=== PATIENT | female | born 1990 | race Hispanic/Latino ===

== ENCOUNTER 2017-01-27 20:45 | Inpatient (IN) | payer BC ==
[2017-01-27 21:29] VITALS: BMI 23.2
[2017-01-28] MEDS ORDERED: Ondansetron HCl/PF 4 MG/2 ML Vial IVP PRN ×3 (02:53→10:24)
[2017-01-28] MEDS ORDERED: Lidocaine 1% (PF) 30 ML VIAL SC PRN (02:53)
[2017-01-28] MEDS ORDERED: LR / Pitocin 40 units/1000 ml 1,000 ML IV PRN (02:53)
[2017-01-28 03:24] LABS: Hematocrit 35.6 % (36.0-47.0); Mean Platelet Volume 9.4 fL (7.4-10.4); Red Blood Cell (RBC) Count 3.82 mill/uL (4.20-5.40); White Blood Cell (WBC) Count 8.3 thou/uL (4.8-10.8)
[2017-01-28] MEDS: Lactated Ringer's 1,000 ML IV SCH ×4 (03:24→16:00)
[2017-01-28] MEDS ORDERED: Fentanyl 4 mcg/Marc 0.1% Cadd 100 ML ONE (05:25)
[2017-01-28] MEDS ORDERED: ePHEDrine/0.9% NaCl/PF SYRINGE 50 mg/10 ml SLOW IVP PRN (05:53)
[2017-01-28] MEDS ORDERED: Acetaminophen 325 MG TAB PO PRN (05:53)
[2017-01-28] MEDS ORDERED: Promethazine HCl 25 MG/ML VIAL IM PRN (05:53)
[2017-01-28] MEDS ORDERED: Lactated Ringer's 500 ML IV PRN (05:53)
[2017-01-28] MEDS ORDERED: diphenhydrAMINE HCl 50 MG/ML 1 ML VIAL IVP PRN (05:53)
[2017-01-28] MEDS ORDERED: Eucerin (Mineral Oil/Petrolatum,White) 30 gm Jar TOP PRN (05:53)
[2017-01-28] MEDS ORDERED: Naloxone HCl 0.4 mg/ml Vial IVP PRN ×2 (05:53)
[2017-01-28] MEDS ORDERED: Communication Order-Pharmacy FS SCH (06:00)
[2017-01-28] MEDS ORDERED: Fentanyl 4mcg/Marcaine 0.1% Cassette 100 ML EPIDURAL SCH (06:00)
[2017-01-28] MEDS ORDERED: Bisacodyl 10 MG SUPP PR PRN (10:24)
[2017-01-28] MEDS ORDERED: diphenhydrAMINE HCl 25 MG CAP PO PRN (10:24)
[2017-01-28] MEDS ORDERED: Preparation H Ointment 28 GM TUBE PR PRN (10:24)
[2017-01-28] MEDS ORDERED: LR / Pitocin 40 units/1000 ml 1,000 ML IV SCH (10:24)
[2017-01-28] MEDS ORDERED: Benzocaine/Menthol 20-0.5% 60 ML CAN TOP PRN (10:24)
[2017-01-28] MEDS ORDERED: Milk Of Magnesia 30 ML UDCUP PO PRN (10:24)
[2017-01-28] MEDS: Ferrous Sulfate 325 MG TAB PO SCH ×2 (11:58→16:00)
[2017-01-28] MEDS: HYDROcodone/Acetaminophen 5/325 mg Tablet PO PRN ×2 (12:02→18:39)
[2017-01-28] MEDS: Docusate (Surfak) 240 MG CAP PO SCH ×2 (12:06→21:18)
[2017-01-28] MEDS: Prenatal Vitamin 1 TAB PO SCH (12:06)
[2017-01-28] MEDS: Ibuprofen 800 MG TAB PO SCH ×2 (14:38→21:18)
[2017-01-29] MEDS: Ibuprofen 800 MG TAB PO SCH ×3 (05:17→21:22)
[2017-01-29 05:31] LABS: Mean Platelet Volume 8.3 fL (7.4-10.4); Red Blood Cell (RBC) Count 3.11 mill/uL (4.20-5.40); White Blood Cell (WBC) Count 7.7 thou/uL (4.8-10.8)
[2017-01-29] MEDS: Ferrous Sulfate 325 MG TAB PO SCH ×2 (09:02→17:19)
[2017-01-29] MEDS: Prenatal Vitamin 1 TAB PO SCH (09:02)
[2017-01-29] MEDS: HYDROcodone/Acetaminophen 5/325 mg Tablet PO PRN ×3 (09:02→19:55)
[2017-01-29] MEDS: Docusate (Surfak) 240 MG CAP PO SCH ×2 (09:02→19:54)
[2017-01-30] MEDS ORDERED: Bupivacaine 0.25% HCL 30 ML VIAL ONE (06:03)
[2017-01-30] MEDS ORDERED: Lidocaine 2% PF 10 ML AMP (For Epidural Use) ONE (06:03)
[2017-01-30] MEDS: Ibuprofen 800 MG TAB PO SCH (06:08)
[2017-01-30] MEDS: Lactated Ringer's 1,000 ML IV SCH (07:49)
[2017-01-30 08:20] VITALS: BP 108/67; TEMP 97.7
[2017-01-30] MEDS: Prenatal Vitamin 1 TAB PO SCH (08:49)
[2017-01-30] MEDS: Docusate (Surfak) 240 MG CAP PO SCH (08:49)
[2017-01-30] MEDS: Ferrous Sulfate 325 MG TAB PO SCH (08:49)
== END 2017-01-30 13:30 | disposition home or self-care (01) | DRG 775 ==
LOC: L&D/OP 20:45 → L&D 01-28 03:04 → 3SW 01-28 09:27
PROVIDERS: ADMIT Family Medicine; ATTEND Family Medicine
PROC: 10E0XZZ Delivery of Products of Conception, External Approach (ICD-10-PCS; principal; 2017-01-28)
PROC: 0W8NXZZ Division of Female Perineum, External Approach (ICD-10-PCS; 2017-01-28)
PROC: 10907ZC Drainage of Amniotic Fluid, Therapeutic from Products of Conception, Via Natural or Artificial Opening (ICD-10-PCS; 2017-01-28)
DX: O80 Encounter for full-term uncomplicated delivery (principal); Z37.0 Single live birth; Z3A.39 39 weeks gestation of pregnancy
CPT/HCPCS: 36415; 85027; 86780; 87340; J0595; J2001; S0020

== ENCOUNTER 2018-07-11 23:37 | Emergency (ER) | payer BC ==
[2018-07-12 00:05] LABS: #Eosinphils 0.2 thou/uL (0.0-0.7); #Lymphocytes 1.9 thou/uL (1.20-3.40); #Monocytes 0.6 thou/uL (0.11-0.59); #Neutrophils 5.1 thou/uL (1.40-6.50); %Basophils 0.6 % (0.0-1.0); %Eosinophils 2.4 % (0.0-10.0); %Lymphocytes 24.5 % (21.0-51.0); %Monocytes 7.1 % (0.0-10.0); %Neutrophils 65.5 % (42.0-75.0); Hemoglobin 12.8 g/dL (12.0-16.0); Mean Corpuscular HGB CONC 35.2 g/dL (32.0-36.0); Mean Corpuscular Hemoglobin 31.5 pg (27.0-31.0); Mean Corpuscular Volume 89.4 fL (78.0-98.0); Mean Platelet Volume 7.7 fL (7.4-10.4); Platelet Count 230 thou/uL (130-400); RBC Distribution Width 11.6 % (11.5-14.5); Red Blood Cell (RBC) Count 4.06 mill/uL (4.20-5.40); White Blood Cell (WBC) Count 7.8 thou/uL (4.8-10.8)
[2018-07-12 00:17] LABS: Bilirubin Negative (Negative); Blood, Urine Negative (Negative); Clarity CLEAR (Clear); Glucose, Urine (Dipstick) Negative (Negative); Leukocyte Negative (Negative); Nitrite Negative (Negative); Protein, Urine (Dipstick) Negative (Neg-Trace); Specific Gravity, Urine 1.015 (1.002-1.036); pH, Urine 6.5 (5.0-9.0)
[2018-07-12] MEDS ORDERED: Acetaminophen 500 MG TAB ONE (01:51)
--- NOTE | 2018-07-12 09:27 | ULT ---
PRELIMINARY REPORT/[facility]/EMERGENTY AFTER-HOURS PROCEDURE US After First Trimester, Transabdominal EXAM DATE/TIME: 07/12/2018 12:55 AM CLINICAL HISTORY: 28 years old, female; Pain and signs and symptoms; Lmp or gestational age (in weeks): 14w2d; Antepart um complications; Other: Pelvic pain that radiates to RT flank; complicated by abdominal or pelvic pain; ; Patient HX: Pelvic pain that radiates to RT flank, nausea, no vaginal bleeding at this time TECHNIQUE: Real-time transabdominal obstetrical ultrasound of the maternal pelvis and a second or third trimeste r with image documentation. COMPARISON: No relevant prior studies available. FINDINGS: GESTATION: Gestation: Single living intrauterine gestation. Heart rate: 150 beats per minute Presentation: Variable Placenta: Anterior placenta. The placenta is low in position and partially or completely covers the i nternal cervical os. Amniotic fluid: Amniotic fluid is visually adequate for gestational age. Head, face, and neck: Incompletely evaluated secondary to early gestation. Heart: Limited evaluation secondary to early gestation. Abdomen: The stomach is visualized. Umbilical cord and insertion: Normal Spine: Limited due to early gestation. Extremities: Limited due to early gestation. BIOMETRY: Estimated gestational age: 15w0d Biparietal diameter: 2.66 cm Head circumference: 9.99 cm Abdominal circumference: 7.79 cm Femur length: 1.28 cm MATERNAL: Uterus: Unremarkable. Cervix: Closed measuring 4.4 cm on transabdominal view. IMPRESSION: 1. Single living intrauterine . Estimated sonographic age of 14w2d. Size and dates are conco rdant. 2. Placenta previa. Followup recommendations per on-site radiologist. 3. No evidence of a subchorionic hematoma. Thank you for allowing us to participate in the care of your patient. Dictated and Authenticated by: Susana Hunter MD 07/12/2018 2:08 AM Central Time ([place] & [place]) FINAL REPORT COMPLETE STANDARD OB ULTRASOUND: HISTORY: Abdominal pain. Flank pain. No vaginal bleeding. COMPARISON: None. TECHNIQUE: Real-time, alfred-scale, color Doppler, and spectral analysis of the pelvis was performed via a transab dominal approach. The findings and impression are concordant with the preliminary report. Followup recommended for the placenta previa. POS: [facility]
== END 2018-07-12 02:53 | disposition home or self-care (01) ==
LOC: ERS 23:37
DX: O44.02 Complete placenta previa NOS or without hemorrhage, second trimester (principal); Z3A.14 14 weeks gestation of pregnancy
CPT/HCPCS: 36415; 76805; 76815; 81003; 84702; 85025

== ENCOUNTER 2018-08-22 14:04 | Outpatient (CLI) | payer BC ==
--- NOTE | 2018-08-22 15:04 | ULT ---
EXAM: OB ultrasound COMPARISON: 07/12/2018 HISTORY: Previous placenta previa seen on ultrasound. TECHNIQUE: Multiplanar grayscale and color Doppler images were obtained in a transabdominal ult rasound. FINDINGS: There is a single live intrauterine with heart rate of 142 bpm. A survey wa s performed which is unremarkable. The head, intracranial structures, heart, stomach, kidneys, umbilical cord, umbilical cord insertion, spine, face, and extremities were evaluated and were unrema rkable. Estimated weight is 320 g. Average age of the fetus based off today's examination is 20 weeks 2 days. BPD 4.81 cm -- 20 weeks 4 days HC 17.96 cm -- 20 weeks 3 days AC 14.70 cm -- 20 weeks 0 days FL 3.10 cm -- 19 weeks 5 days The placenta is anterior in location without focal abnormality. [place] is 17.52 cm which is normal. Ther e is no evidence of placenta previa. The inferior tip of the placenta is 2.3 cm from the internal os. IMPRESSION: 1. Single live intrauterine with estimated age of 20 weeks 2 days. 2. No evidence of placenta previa
== END 2018-08-22 14:05 | disposition home or self-care (01) ==
LOC: BICULT 14:04
PROVIDERS: ATTEND Family Medicine
DX: Z34.82 Encounter for supervision of other normal pregnancy, second trimester (principal)
CPT/HCPCS: 76805

== ENCOUNTER 2018-10-14 18:18 | Day surgery (SDC) | payer BC ==
[2018-10-14 19:02] VITALS: BP 98/49; TEMP 99.2; BMI 23.8
[2018-10-14 19:52] LABS: #Eosinphils 0.1 thou/uL (0.0-0.7); #Lymphocytes 1.3 thou/uL (1.20-3.40); #Monocytes 0.6 thou/uL (0.11-0.59); #Neutrophils 7.7 thou/uL (1.40-6.50); %Basophils 0.4 % (0.0-1.0); %Eosinophils 0.6 % (0.0-10.0); %Lymphocytes 13.7 % (21.0-51.0); %Monocytes 5.7 % (0.0-10.0); %Neutrophils 79.6 % (42.0-75.0); Hemoglobin 11.5 g/dL (12.0-16.0); Mean Corpuscular HGB CONC 35.9 g/dL (32.0-36.0); Mean Corpuscular Hemoglobin 32.5 pg (27.0-31.0); Mean Corpuscular Volume 90.7 fL (78.0-98.0); Mean Platelet Volume 7.9 fL (7.4-10.4); Platelet Count 188 thou/uL (130-400); RBC Distribution Width 10.6 % (11.5-14.5); Red Blood Cell (RBC) Count 3.53 mill/uL (4.20-5.40); White Blood Cell (WBC) Count 9.7 thou/uL (4.8-10.8)
[2018-10-14 20:12] LABS: ALT (SGPT) 18 U/L (8-55); AST (SGOT) 19 U/L (5-34); Albumin 3.4 g/dL (3.5-5.0); Alkaline Phosphatase 87 U/L (40-150); Anion Gap 13 mmol/L (10-20); BUN (Urea Nitrogen) 8 mg/dL (7.0-18.7); Bilirubin, Total 0.2 mg/dL (0.2-1.2); Calc. Creatinine Clearance 161 mL/min (70-130); Calcium 8.8 mg/dL (7.8-10.44); Carbon Dioxide 21 mmol/L (22-29); Chloride 104 mmol/L (98-107); Estimated GFR-MDRD Greater than 90; Globulin 2.9 g/dL (2.4-3.5); Glucose 99 mg/dL (70-105); Potassium 3.4 mmol/L (3.5-5.1); Protein, Total 6.3 g/dL (6.0-8.3); Sodium 135 mmol/L (136-145)
[2018-10-14 20:33] LABS: Bilirubin Negative (Negative); Blood, Urine Negative (Negative); Clarity CLEAR (Clear); Glucose, Urine (Dipstick) Negative (Negative); Leukocyte Negative (Negative); Nitrite Negative (Negative); Protein, Urine (Dipstick) Negative (Neg-Trace); Specific Gravity, Urine 1.008 (1.002-1.036); Urobilinogen 0.2 mg/dL (0.2-1.0)
--- NOTE | 2018-10-14 21:22 | PDOC.FPROB ---
FMR OB H&P: HPI - History of Present Illness Chief Complaint: RUQ pain Indentification: 28 year old at 28.2 wks History of Present Illness: 28 year old at 28.2 wks with BEVERLY of 01/04/2019 presents with sudden onset RUQ pain around 16:40 this afternoon. She states she was at work and reached for something when she felt a pull. She has RUQ pain radiating to back and LLQ pain. Patient states that she has not had pain like this before. She does have a history of GERD, but she states that she is not on any medications for it, and this pain is different. Movements make the pain worse. Patient did have nausea earlier today and has not eaten since 12:00 PM. Patient denies any significant PMH. She denies vaginal bleeding, vaginal discharge, LoF, or contractions. Patient endorses good movement. Patient denies fever, chills , dysuria. Primary Care Physician: Dr. Hackett FMR OB H&P: Current - Care : 2 Para: 1001 Gestational age: 28.2 wks Due date: 01/04/2019 FMR OB H&P: History - Past Medical History PMH: GERD - OB History OB History: x1 - Surgical History Sx History: Denies - Social History Social History: Denies alcohol, tobacco, or drug use. FMR OB H&P: Medications - Current Home Medications: Medication Instructions Recorded Confirmed Type Comb No.42/Folic Acid 1 tablet PO DAILY 01/27/17 10/14/18 History [Prena1 Chewable Tablet] Allergies/Adverse Reactions: Allergies Allergy/AdvReac Type Severity Reaction Status Date / Time No Known Allergies Allergy Verified 10/14/18 18:58 FMR OB H&P: ROS - Review of Systems General: reports: weight/appetite/sleep changes (decreased appetite). denies: fever/chills, recent trauma ENT: denies: nasal congestion, rhinorrhea, sore throat Cardiovascular: denies: chest pain, palpitation, edema Respiratory: denies: cough, congestion, shortness of breath Gastrointestinal: reports: abdominal pain, nausea. denies: bloating, cramping, vomiting, diarrhea, constipation Genitourinary (Female): reports: polyuria. denies: dysuria, vaginal discharge, vaginal pain, vaginal bleeding, contractions, vaginal pressure Musculoskeletal: reports: other (Pulled muscle right side). denies: stiffness Neurologic: denies: numbness, syncope, seizures Integumentary: denies: itching, rash, lesions Hematologic/Lymphatic: denies: prolonged or excessive bleeding Psychological: denies: depression, anxiety FMR OB H&P: Vital Signs - Maternal Vital signs: Vital Signs - First Documented Temp Resp BP 99.2 F 16 98/49 L 10/14/18 18:58 10/14/18 18:58 10/14/18 18:58 - Heart Tones Variability: moderate Acceleration: present Deceleration: absent Category: category 1 [place] contractions every: None FMR OB H&P: Physical Exam - Physical Exam General: NAD, awake, alert and oriented HEENT: MMM, grossly normal vision, grossly normal hearing Neck: supple Heart: RRR, no murmurs/rubs/gallops General: CTAB, no respiratory distress Abdomen: soft, gravid Musculoskeletal: pulses present, FROM in all four extremities Neurological: no tremor, no focal deficit Skin: no rash, capillary refill <2 seconds Lymphatic: no unusual bruising or bleeding, no purpura Psychiatric: intact recent and remote memory, good judgement and insight FMR OB H&P: Results - Labs Lab results: Laboratory Results - last 24 hr 10/14/18 10/14/18 10/14/18 19:42 19:42 20:24 WBC 9.7 RBC 3.53 L Hgb 11.5 L Hct 32.0 L MCV 90.7 MCH 32.5 H MCHC 35.9 RDW 10.6 L Plt Count 188 MPV 7.9 Neutrophils % 79.6 H Lymphocytes % 13.7 L Monocytes % 5.7 Eosinophils % 0.6 Basophils % 0.4 Neutrophils # 7.7 H Lymphocytes # 1.3 Monocytes # 0.6 H Eosinophils # 0.1 Basophils # 0.0 Sodium 135 L Potassium 3.4 L Chloride 104 Carbon Dioxide 21 L Anion Gap 13 BUN 8 Creatinine 0.49 L Estimated GFR (MDRD) Greater than 90 Glucose 99 Calcium 8.8 Total Bilirubin 0.2 AST 19 ALT 18 Alkaline Phosphatase 87 Serum Total Protein 6.3 Albumin 3.4 L Globulin 2.9 Albumin/Globulin Ratio 1.2 Urine Color YELLOW Urine Clarity CLEAR Urine pH 7.0 Ur Specific [place] 1.008 Urine Protein Negative Urine Glucose (UA) Negative Urine Ketones Negative Urine Blood Negative Urine Nitrite Negative Urine Bilirubin Negative Urine Urobilinogen 0.2 Ur Leukocyte Esterase Negative FMR OB H&P: A/P - Problem List (1) Abdominal pain during intrauterine Current Visit: Yes Status: Acute Code(s): O26.899 - OTH RELATED CONDITIONS, UNSPECIFIED TRIMESTER; R10.9 - UNSPECIFIED ABDOMINAL PAIN (2) GERD (gastroesophageal reflux disease) Current Visit: Yes Status: Acute Code(s): K21.9 - GASTRO-ESOPHAGEAL REFLUX DISEASE WITHOUT ESOPHAGITIS Disposition: 28 year old at 28.2 wks presents with RUQ pain 1. RUQ abdominal pain - radiates to back - hx of GERD, not on medications - story consistent with MSK strain given she was reaching for something at work when it started - RUQ u/s pending to evaluate gallbladder and kidney - PO hydration - CMP with nml BUN, Cr, and LFT's - UA straight cath neg for infection or blood (which would point toward kidney stone) - CBC with mild anemia but neg WBC 2. GERD - Not on medications Dispo: Pending RUQ sono. Labs WNL. Likely MSK given precipitating events. Discussion: Date/Time: 10/14/182118 This H&P was discussed with [] and [] who agree with the above documentation and plan.
--- NOTE | 2018-10-14 22:04 | ULT ---
ULTRASOUND ABDOMEN LIMITED: (RIGHT UPPER QUADRANT) DATE: 10/14/2018 HISTORY: 28-year-old female 28 weeks gestation presents with right upper quadrant abdominal pain. FINDINGS: Gallbladder:Contains multiple tiny gallstones, on the order of 2 to 3 mm in size each. Gallbladder no t distended. Borderline mural thickening to 3 mm. No pericholecystic edema. Positive tenderness over right upper quadrant during scanning. Common duct: 5 mm. Liver:Normal Pancreas:Much of it obscured by shadowing from bowel gas. Right kidney:Very mild dilation of right renal collecting system. This could represent mild hydroneph rosis of . Right ureteral jet demonstrated in the normal-appearing bladder. IMPRESSION: Positive for cholelithiasis.
--- NOTE | 2018-10-14 22:11 | PDOC.EVN ---
Event Note - Event Note Event Note: 22:00 on 10/14/2018 RUQ ultrasound showed cholelithiasis with no evidence for cholecystitis. Mild hydro on right, which would be expected with . Ureteral jet normal on right. No evidence of kidney stone. Labs WNL. Patient educated on gallstones and possibility of MSK strain. Advised she can take tylenol 1g q6h as needed for pain. ER precautions provided to include persistent N/V, severe RUQ pain, fever, chills. Patient advised to schedule follow up with Dr. Hackett early next week. Patient voiced understanding of necessity for close follow up. Patient discharged home in stable condition. She did not appear to be in any pain at time of discharge. Eva Thibodeaux, DO PGY-2
== END 2018-10-14 22:15 | disposition home or self-care (01) ==
LOC: L&D/OP 18:18
PROVIDERS: ATTEND Family Medicine
DX: O99.613 Diseases of the digestive system complicating pregnancy, third trimester (principal); K80.20 Calculus of gallbladder without cholecystitis without obstruction; K21.9 Gastro-esophageal reflux disease without esophagitis; O99.89 Other specified diseases and conditions complicating pregnancy, childbirth and the puerperium; N13.30 Unspecified hydronephrosis; Z3A.28 28 weeks gestation of pregnancy
CPT/HCPCS: 36415; 76705; 80053; 81003; 85025; 99283

== ENCOUNTER 2018-12-21 19:35 | Day surgery (SDC) | payer BC, OTHER ==
[2018-12-21 20:05] VITALS: BMI 24.1
[2018-12-21] MEDS ORDERED: Metoclopramide HCl 10 MG/2 ML VIAL IVP PRN (20:27)
[2018-12-21] MEDS ORDERED: diphenhydrAMINE 50 MG/ML VIAL IVP PRN (20:27)
[2018-12-21] MEDS ORDERED: Lactated Ringer's 1,000 ML IV SCH (20:30)
--- NOTE | 2018-12-21 22:18 | PDOC.LDHP ---
Labor and Delivery H&P Chief complaint: contractions, other (headache) HPI: 28 y/o at 38w0d, patient of Dr. Hackett, presents with ctx on and off today and a headache unrelieved with Tylenol. Denies VB, LOF, or decreased FM. ROS neg for HEENT, cv, pulm, gi, gu, neuro, psych, skin, musculoskeletal or constitutional symptoms other than mentioned above. OB History Details: 1 prior term Current complications: none Past Medical History: GERD Current medications: pre- vitamins Previous surgical history: none Allergies/Adverse Reactions: Allergies Allergy/AdvReac Type Severity Reaction Status Date / Time No Known Allergies Allergy Verified 10/14/18 18:58 Social history: none - Physical Exam Vital signs reviewed and normal: yes General: NAD, resting Lungs: nonlabored breathing Abdomen: gravid Extremeties: no edema FHT: category 1 (140s, mod variability, + accels, no decels) [place] contractions every: irritability, resolved - Vaginal Exam cm dilated: 1 Effacement: 50% Station: -3 - Assessment 28 y/o at 38w0d with no e/o active labor. Headache resolved with Reglan and Benadryl. status reassuring with reactive NST. - Plan -: D/c home with precautions. Advised to keep all appointments.
== END 2018-12-21 22:40 | disposition home or self-care (01) ==
LOC: L&D/OP 19:35
PROVIDERS: ATTEND Family Medicine
DX: O99.89 Other specified diseases and conditions complicating pregnancy, childbirth and the puerperium (principal); R51 Headache; O99.613 Diseases of the digestive system complicating pregnancy, third trimester; K21.9 Gastro-esophageal reflux disease without esophagitis; Z3A.38 38 weeks gestation of pregnancy
CPT/HCPCS: 96360; 96375; 99283; J1200; J2765

== ENCOUNTER 2018-12-29 05:30 | Inpatient (IN) | payer BC, OTHER ==
[2018-12-29] MEDS ORDERED: Carboprost 250 MCG/ML AMP IM PRN (11:10)
[2018-12-29] MEDS ORDERED: NS w/ Oxytocin 10 units 500 ML IV SCH ×2 (11:10)
[2018-12-29] MEDS ORDERED: Lactated Ringer's 1,000 ML IV SCH (11:10)
[2018-12-29] MEDS ORDERED: Ibuprofen 800 MG TAB PO PRN (11:10)
[2018-12-29] MEDS ORDERED: Ondansetron PF 4 MG/2 ML Vial IVP PRN ×2 (11:10→17:43)
[2018-12-29] MEDS ORDERED: Misoprostol 200 MCG TAB PR PRN (11:10)
[2018-12-29] MEDS ORDERED: Methylergonovine 0.2 MG/ML VIAL IM PRN (11:10)
[2018-12-29] MEDS ORDERED: Diphenoxylate HCl/Atropine Tablet PO PRN (11:10)
[2018-12-29] MEDS ORDERED: Promethazine HCl 25 MG/ML VIAL IM PRN ×2 (11:10→17:43)
[2018-12-29] MEDS ORDERED: Butorphanol Tartrate 1 MG/ML VIAL SLOW IVP PRN (11:10)
[2018-12-29] MEDS ORDERED: Lidocaine 1% (PF) 30 ML VIAL SC PRN (11:10)
[2018-12-29] MEDS ORDERED: HYDROcodone/Acetaminophen 5/325 mg Tablet PO PRN ×3 (11:10→17:43)
[2018-12-29] MEDS ORDERED: NS / Oxytocin 40 units/1000ml 1,000 ML IV PRN (11:10)
[2018-12-29] MEDS ORDERED: hydrALAZINE 20 MG/ML VIAL SLOW IVP PRN ×2 (11:10→17:43)
[2018-12-29 11:34] LABS: Hemoglobin 11.7 g/dL (12.0-16.0); Mean Corpuscular HGB CONC 34.6 g/dL (32.0-36.0); Mean Corpuscular Hemoglobin 29.7 pg (27.0-31.0); Mean Corpuscular Volume 85.9 fL (78.0-98.0); Mean Platelet Volume 9.1 fL (7.4-10.4); Platelet Count 172 thou/uL (130-400); RBC Distribution Width 10.8 % (11.5-14.5); Red Blood Cell (RBC) Count 3.94 mill/uL (4.20-5.40); White Blood Cell (WBC) Count 5.9 thou/uL (4.8-10.8)
[2018-12-29 12:17] LABS: Syphilis Antibody Nonreactive (Nonreactive); Syphilis Antibody Index 0.04 S/CO (<1.00 Non-Reactive)
[2018-12-29 12:39] LABS: HBSAg Index 0.16 S/CO (0-0.99); Hep B Surf Ag Non-Reactive S/CO (NonReactive)
[2018-12-29] MEDS ORDERED: Milk Of Magnesia 30 ML UDCUP PO PRN (17:43)
[2018-12-29] MEDS ORDERED: Bisacodyl 10 MG SUPP PR PRN (17:43)
[2018-12-29] MEDS ORDERED: Lanolin Ointment 7 GM TUBE TOP PRN (17:43)
[2018-12-29] MEDS ORDERED: NS / Oxytocin 40 units/1000ml 1,000 ML IV SCH (17:43)
[2018-12-29] MEDS ORDERED: diphenhydrAMINE 25 MG CAP PO PRN (17:43)
[2018-12-29] MEDS: Docusate Calcium (SURFAK) 240 MG CAP PO SCH (20:58)
[2018-12-30] MEDS: Ibuprofen 800 MG TAB PO SCH ×4 (00:36→16:17)
[2018-12-30 05:48] LABS: Hemoglobin 10.2 g/dL (12.0-16.0); Mean Corpuscular HGB CONC 36.1 g/dL (32.0-36.0); Mean Corpuscular Hemoglobin 31.8 pg (27.0-31.0); Mean Corpuscular Volume 87.9 fL (78.0-98.0); Mean Platelet Volume 8.7 fL (7.4-10.4); Platelet Count 126 thou/uL (130-400); RBC Distribution Width 10.8 % (11.5-14.5); Red Blood Cell (RBC) Count 3.22 mill/uL (4.20-5.40); White Blood Cell (WBC) Count 6.3 thou/uL (4.8-10.8)
[2018-12-30 08:21] VITALS: BP 115/56; TEMP 98.1
[2018-12-30] MEDS ORDERED: Adacel (T-DAP) 0.5 ML SYRINGE IM ONE (09:00)
[2018-12-30] MEDS ORDERED: Prenatal Vitamin 1 TAB PO SCH (09:00)
[2018-12-30] MEDS: Ferrous Sulfate 325 MG TAB PO SCH ×2 (09:24→16:19)
[2018-12-30] MEDS: Docusate Calcium (SURFAK) 240 MG CAP PO SCH (09:45)
== END 2018-12-30 18:42 | disposition home or self-care (01) | DRG 807 ==
LOC: L&D 10:48 → 3SW 18:18
PROVIDERS: ADMIT Family Medicine; ATTEND Family Medicine
PROC: 10E0XZZ Delivery of Products of Conception, External Approach (ICD-10-PCS; principal; 2018-12-29)
PROC: 3E033VJ Introduction of Other Hormone into Peripheral Vein, Percutaneous Approach (ICD-10-PCS; 2018-12-29)
PROC: 10907ZC Drainage of Amniotic Fluid, Therapeutic from Products of Conception, Via Natural or Artificial Opening (ICD-10-PCS; 2018-12-29)
PROC: 0HQ9XZZ Repair Perineum Skin, External Approach (ICD-10-PCS; 2018-12-29)
DX: O69.1XX0 Labor and delivery complicated by cord around neck, with compression, not applicable or unspecified (principal); Z37.0 Single live birth; O70.0 First degree perineal laceration during delivery; Z3A.39 39 weeks gestation of pregnancy
CPT/HCPCS: 36415; 85027; 86780; 86850; 86900; 86901; 87340; J0595; J2590